=== PATIENT | male | born 1970 | race Caucasian/White ===

== ENCOUNTER → 2017-08-12 | Outpatient (CLI) | payer MEDICAID | LOC: RAD 14:51 | PROVIDERS: ATTEND Family Medicine | DX: M41.85 Other forms of scoliosis, thoracolumbar region (principal); M51.35 Other intervertebral disc degeneration, thoracolumbar region | CPT/HCPCS: 72080 ==

== ENCOUNTER 2017-08-15 11:52 | Emergency (ER) | payer MEDICAID ==
[~2017-08-15] VITALS: Ht 185.4 cm; Wt 82.3 kg
[2017-08-15] MEDS ORDERED: MORPHINE SULFATE 4 MG/ML, 1ML IVPush PRN (12:30)
[2017-08-15] MEDS ORDERED: SODIUM CHLORIDE 0.9% 1,000ML IVBOLUS ONE (12:30)
[2017-08-15] MEDS ORDERED: SODIUM CHLORIDE FLUSH 10ML SYR IVF ONE (12:30)
[2017-08-15] MEDS ORDERED: ONDANSETRON 2MG/ML, 2ML IVPush ONE (12:30)
[2017-08-15 12:46] LABS: BLOOD UREA NITROGEN 15 mg/dL (7-18)
[2017-08-15 12:48] LABS: HEMATOCRIT 46.9 % (39.2-51.8); WHITE BLOOD COUNT 10.7 x10^3/uL (3.4-10)
[2017-08-15 12:50] LABS: ASPARTATE AMINO TRANSFERASE 19 U/L (15-37)
[2017-08-15] MEDS ORDERED: ONDANSETRON 2MG/ML, 2ML ONE (12:59)
[2017-08-15] MEDS ORDERED: morphine SULFATE 10 MG/ML, 1ML ONE ×2 (12:59→14:08)
[2017-08-15] MEDS: morphine SULFATE 10 MG/ML, 1ML IVPush PRN ×2 (13:06→14:12)
[2017-08-15] MEDS ORDERED: OMNIPAQUE 350 MG/ML, 100ML BOTTLE ONE (13:33)
[2017-08-15 14:11] VITALS: BP 117/75
== END 2017-08-15 15:56 | disposition home or self-care (01) ==
LOC: ED 14:39
DX: N41.0 Acute prostatitis (principal); N28.9 Disorder of kidney and ureter, unspecified; R10.31 Right lower quadrant pain; R10.32 Left lower quadrant pain
CPT/HCPCS: 36415; 74177; 80053; 81003; 83690; 85025; 93005; 96361; 96374; 96375; 96376; 99285; J2270; J2405; J7030; Q9967

== ENCOUNTER 2017-10-20 12:31 | Emergency (ER) | payer MEDICAID ==
[~2017-10-20] VITALS: Ht 185.4 cm; Wt 83.0 kg
[2017-10-20 12:39] VITALS: BP 119/83
[2017-10-20] MEDS ORDERED: BACL20TA PO (13:22)
[2017-10-20] MEDS ORDERED: TAMS0.4C2 PO (13:22)
[2017-10-20] MEDS ORDERED: FINA5TAB4 PO (13:22)
[2017-10-20] MEDS ORDERED: DOXA1TAB2 PO (13:22)
[2017-10-20] MEDS ORDERED: IPRA4AER INH (13:22)
[2017-10-20] MEDS ORDERED: BUDE0.253 INH (13:22)
== END 2017-10-20 14:02 | disposition home or self-care (01) ==
LOC: ED 13:50
DX: G89.11 Acute pain due to trauma (principal); M54.5 Low back pain; G89.29 Other chronic pain
CPT/HCPCS: 72110; 99284

== ENCOUNTER 2020-07-29 13:07 | Emergency (ER) | payer BC, MEDICAID ==
[~2020-07-29] VITALS: Ht 185.4 cm; Wt 85.7 kg
[~2020-07-29 13:07] MED LIST: BACL20TA PO; BUDE0.253 INH; DOXA1TAB2 PO; FINA5TAB4 PO; IPRA4AER INH; TAMS0.4C2 PO
[2020-07-29 13:57] LABS: BASOPHILS % (AUTO) 1 % (0-1); EOSINOPHILS % (AUTO) 1 % (1-7); LYMPHOCYTES % (AUTO) 41 % (22-44); MEAN CORPUSCULAR HEMOGLOBIN 34.4 pg (27.5-34.5); MEAN CORPUSCULAR HGB CONC 34.2 g/dL (33.2-36.2); MEAN PLATELET VOLUME 8.5 fL (7.4-10.4); MONOCYTES % (AUTO) 11 % (2-9); NEUTROPHILS % (AUTO) 46 % (42-75); PLATELET COUNT 219 x10^3/uL (130-400); RED BLOOD COUNT 4.56 x10^6/uL (4.38-5.82); RED CELL DISTRIBUTION WIDTH 12.9 % (9.4-14.8)
[2020-07-29 13:58] LABS: MD NO
[2020-07-29 14:16] LABS: ALANINE AMINOTRANSFERASE 24 U/L (12-78); ALBUMIN 3.8 g/dL (3.4-5.0); ALKALINE PHOSPHATASE 69 U/L (45-117); ANION GAP 7 mmol/L (5-15); BILIRUBIN,TOTAL 0.4 mg/dL (0.2-1.0); CHLORIDE 106 mmol/L (98-107); CREATININE 1.19 mg/dL (0.7-1.3); TOTAL PROTEIN 7.2 g/dL (6.4-8.2)
--- NOTE | 2020-07-29 16:29 | NUR ---
PT WALKED TO ROOM FROM LOBBY AT THIS TIMES. CO OF ABDOMINAL PAIN W CRAMPING, DENIES N/V
[2020-07-29] MEDS ORDERED: ONDANSETRON ODT 4 MG ONE (17:28)
[2020-07-29 17:57] VITALS: BP 131/81
--- NOTE | 2020-07-29 17:57 | NUR ---
Patient/Caregiver given discharge instructions and they have confirmed that they understand the instructions. Patient ambulatory with steady gait.
[2020-07-29] MEDS ORDERED: ONDANSETRON ODT 4 MG PO ONE (18:00)
== END 2020-07-29 17:59 | disposition home or self-care (01) ==
LOC: ED 14:04
DX: R11.2 Nausea with vomiting, unspecified (principal); Z20.828 Contact with and (suspected) exposure to other viral communicable diseases; R10.9 Unspecified abdominal pain; F17.210 Nicotine dependence, cigarettes, uncomplicated
CPT/HCPCS: 36415; 80053; 83690; 85025; 87635; 99283; 99406; Q0162; 99285